=== PATIENT | male | born 1965 | race Caucasian/White ===

== ENCOUNTER 2020-08-24 03:19 | Emergency (ER) | payer BC ==
[~2020-08-24] VITALS: Ht 175.3 cm; Wt 105.7 kg
== END 2020-08-24 07:40 | disposition home or self-care (01) ==
LOC: ER 03:19
DX: S50.811A Abrasion of right forearm, initial encounter (principal); S60.511A Abrasion of right hand, initial encounter; W22.8XXA Striking against or struck by other objects, initial encounter; Y93.89 Activity, other specified; Y92.814 Boat as the place of occurrence of the external cause; Y99.8 Other external cause status